=== PATIENT | female | born 1980 | race Two or more races ===

== ENCOUNTER 2016-12-09 20:43 | Emergency (ER) | payer MEDICARE, MEDICAID ==
[~2016-12-09] VITALS: Ht 160 cm; Wt 49.9 kg
[~2016-12-09 20:43] MED LIST: BENA40TA2 PO; CHOL200026 PO; CLON0.2T PO; CLONIDINE PATCH TD; LEVO150T8 PO; METO-306 PO; NIFE60TA69 PO
--- NOTE | 2016-12-09 20:43 | NUR ---
to bed 2 bib paramedics c/o L sided chest pressure x2 hrs guard captain. pt was given nitro spray x3 and aspirin 162mg po. pt describes pain as pressure. pt aaox4 no acute distress noted, resp even and unlabored. place pt on cardiac monitoring, continuous pox. skin warm nondiaphoretic. pending er md winston.
--- NOTE | 2016-12-09 20:44 | NUR ---
rere aquino at bedside to tish grimes.
--- NOTE | 2016-12-09 20:55 | NUR ---
dietary worker at bedside for blood draw.
[2016-12-09 20:59] LABS: BASOPHILS % (AUTO) 0.2 % (0.0-2.0); EOSINOPHILS # (AUTO) 0.2 /CMM (0.0-0.7); EOSINOPHILS % (AUTO) 1.7 % (0.0-6.0); HEMATOCRIT 31 % (33-45); HEMOGLOBIN 10.7 g/dL (11.5-14.8); LYMPHOCYTES # (AUTO) 1.2 /CMM (0.8-4.8); LYMPHOCYTES % (AUTO) 13.9 % (20.0-44.0); MEAN CORPUSCULAR HEMOGLOBIN 32 PG (26.0-33.0); MEAN CORPUSCULAR HGB CONC 35 g/dl (31.0-36.0); MEAN CORPUSCULAR VOLUME 91 fL (82-100); MONOCYTES # (AUTO) 0.6 /CMM (0.1-1.30); MONOCYTES % (AUTO) 6.3 % (2.0-12.0); NEUTROPHILS # (AUTO) 6.8 /CMM (1.8-8.9); NEUTROPHILS % (AUTO) 77.9 % (43.0-81.0); PLATELET COUNT (AUTO) 435 /CMM (150-450); RDW COEFFICIENT OF VARIATION 13.2 (11.5-15.0); WHITE BLOOD COUNT (AUTO) 8.8 K/uL (4.3-11.0)
[2016-12-09 21:08] LABS: CALCIUM, SERUM 9.7 mg/dL (8.5-10.1); CARBON DIOXIDE 35 mmol/L (21-32); CHLORIDE 99 mmol/L (98-107); CREATININE 3.8 mg/dL (0.6-1.3); GFR 14 mL/min (>60); GLUCOSE 98 mg/dL (74-106); SODIUM SERUM 138 mmol/L (136-145); UREA NITROGEN, BLOOD 17 mg/dL (7-18)
[2016-12-09 21:12] LABS: INR 1.15 (0.87-1.13); PROTHROMBIN TIME 12.1 SECS (9.5-12.7)
[2016-12-09 21:18] LABS: TROPONIN I < 0.017 ng/mL (0.00-0.056)
--- NOTE | 2016-12-09 22:06 | NUR ---
Patient does not wish to proceed with medical care recommended by Dr. Coleman). Patient given information related to possible complications, up to and including , which could occur as a result of leaving the hospital at this time. Patient verbalizes understanding of risks involved due to leaving against medical advice. Patient has signed AMA form. pt aaox4 no acute distress noted, resp even and unlabored. pt at bedside to take pt home.
--- NOTE | 2016-12-09 22:06 | NUR ---
IV removed. Catheter intact and site benign. Pressure and 4x4 applied to site. No bleeding noted.
[2016-12-09 22:08] VITALS: BP 153/93
== END 2016-12-09 22:09 | disposition left against medical advice (07) ==
LOC: ER 20:48
DX: R07.2 Precordial pain (principal); I10 Essential (primary) hypertension; D64.9 Anemia, unspecified; Z99.2 Dependence on renal dialysis; Z85.850 Personal history of malignant neoplasm of thyroid; F41.9 Anxiety disorder, unspecified; F17.210 Nicotine dependence, cigarettes, uncomplicated
CPT/HCPCS: 36415; 71010; 80048; 84484; 85025; 85730; 93005; 99285; A4606; Z7610

== ENCOUNTER 2017-06-12 03:46 | Inpatient (IN) | payer MEDICARE, MEDICAID ==
[2017-06-12] VITALS (31 sets, daily range): BP systolic 132–203; BP diastolic 77–133
[~2017-06-12] VITALS: Ht 152.4 cm; Wt 49.9 kg
--- NOTE | 2017-06-12 03:57 | NUR ---
Pt BIB [facility] for SOB. Pt c/o SOB and chest tightness since around 2300 last night. Pt denies CP, dizziness, n/v, no other complaints, minor distress noted.
--- NOTE | 2017-06-12 04:23 | NUR ---
Admin ntg. IV 20g right hand. Pt on monitor. Pt placed on bi-level by RT. EKG, given to
[2017-06-12 04:26] LABS: BASOPHILS % (AUTO) 0.3 % (0.0-2.0); EOSINOPHILS # (AUTO) 0.2 /CMM (0.0-0.7); EOSINOPHILS % (AUTO) 1.6 % (0.0-6.0); HEMATOCRIT 32 % (33-45); HEMOGLOBIN 10.5 g/dL (11.5-14.8); LYMPHOCYTES # (AUTO) 0.9 /CMM (0.8-4.8); LYMPHOCYTES % (AUTO) 8.8 % (20.0-44.0); MEAN CORPUSCULAR HEMOGLOBIN 29 PG (26.0-33.0); MEAN CORPUSCULAR HGB CONC 33 g/dl (31.0-36.0); MEAN CORPUSCULAR VOLUME 90 fL (82-100); MONOCYTES # (AUTO) 0.4 /CMM (0.1-1.30); MONOCYTES % (AUTO) 3.8 % (2.0-12.0); NEUTROPHILS # (AUTO) 8.9 /CMM (1.8-8.9); NEUTROPHILS % (AUTO) 85.5 % (43.0-81.0); PLATELET COUNT (AUTO) 279 /CMM (150-450); RDW COEFFICIENT OF VARIATION 16.9 (11.5-15.0); RED BLOOD CELL COUNT(AUTO) 3.59 MIL/uL (4.0-5.2); WHITE BLOOD COUNT (AUTO) 10.4 K/uL (4.3-11.0)
[2017-06-12 04:36] LABS: CALCIUM, SERUM 9.4 mg/dL (8.5-10.1); CREATININE 6.8 mg/dL (0.6-1.3)
[2017-06-12 04:39] LABS: INR 1.15 (0.87-1.13)
[2017-06-12 04:44] LABS: TROPONIN I 0.018 ng/mL (0.00-0.056)
[2017-06-12 04:49] LABS: ALBUMIN 3.4 g/dL (3.4-5.0); BILIRUBIN,DIRECT 0.1 mg/dL (0.0-0.2); BILIRUBIN,TOTAL 0.4 mg/dL (0.2-1.0); TOTAL PROTEIN, SERUM 7.5 g/dL (6.4-8.2)
--- NOTE | 2017-06-12 05:10 | NUR ---
Called report to AKIL Merino, ICU
--- NOTE | 2017-06-12 05:11 | NUR ---
ALBUTEROL 20MG 4ML GIVEN VIA SMALL VOLUME NEBULIZER IN 1 TX PER MD ORDER, ADMINISTER AAS QUICKLY POSSIBLE DUE TO INCREASED K Addendum: 06/12/17 at 0513 by NIMA VEGA RT Amended: Links added.
--- NOTE | 2017-06-12 05:15 | NUR ---
RN NOTES RECEIVED REPORT FROM SCRUB NURSE NELSON
--- NOTE | 2017-06-12 05:16 | NUR ---
Pt not able to give urine sample yet
--- NOTE | 2017-06-12 05:45 | NUR ---
RN INITIAL NOTES PT ARRIVED ON THE UNIT, A/O X4, ON 4L NASAL CANNULA, NO S/S OF RESP DISTRESS, SATURATING WELL. PT DENIES ANY PAIN. SKIN IS INTACT. VITALS ARE WNL. RIGHT HAND 20G FLUSHED AND PATENT, NO S/S OF INFILTRATION/INFECTION, DRESSING CDI. LEFT UPPER ARM AV FISTULA NOTED WITH BRUIT AND THRILL. PATIENT WILL BE BACK ON BIPAP, SETTINGS RATE 12, 30% FIO2, 15/5. BED LOW AND LOCKED, SIDERAILS UP, CALL LIGHT WITHIN REACH. WILL MONITOR
--- NOTE | 2017-06-12 05:48 | NUR ---
pt transfered to ICU via gurney with EMT and RN
--- NOTE | 2017-06-12 06:30 | NUR ---
RN NOTES PT REMAINS STABLE OF THE MOMENT. WILL ENDORSE BONIFACIO TO AM RN
--- NOTE | 2017-06-12 07:30 | NUR ---
ICU/RN: Pt received, awake and alert on BiPAP, denies pain and discomfort, no distress noted. ST on monitor. IV HL patent, flushed. Oriented to POC. Verbalized understanding, will cont to monitor pt.
--- NOTE | 2017-06-12 09:45 | NUR ---
ICU/RN: Dr Elmore at the bedside; updated on pt status. Informed of K 6.0. Orders for HD today. Pt in agreement with POC.
--- NOTE | 2017-06-12 09:50 | NUR ---
ICU/RN: Kj Davis, DNP at bedside. POC dw pt. Aware of abn labs. Pt anxious to go home. Per ASSET ADMINISTRATOR, HD today, ambulate post-HD as tolerated, possible DC if pt tolerates.
--- NOTE | 2017-06-12 10:00 | NUR ---
ICU/RN: BP meds held; pt scheduled for HD this am.
--- NOTE | 2017-06-12 11:00 | NUR ---
ICU/RN: HD RN at bedside.
--- NOTE | 2017-06-12 13:00 | NUR ---
manager multicultural pt is being dialyzed sbp 193/113 paged jaskaran simpson awaiting for orders. pt is aox4 denies of any pain or discomfort at this time.
--- NOTE | 2017-06-12 13:13 | NUR ---
1700 bp med given for elevated bp, Nahomy BARNARD report given to continue care.
--- NOTE | 2017-06-12 13:34 | NUR ---
ICU/RN: Received report from AKIL Hamlin. Kj Davis aware of constantly elevated BP >180's during 180's, per PRIVATE BRANCH EXCHANGE OPERATOR administer home meds. Pt states "this always happens during HD. I just take my home meds to help control it. It goes down about an hour after I take it." Addendum: 06/12/17 at 1434 by ROB SEARS RN SBP >180's during HD
--- NOTE | 2017-06-12 14:15 | NUR ---
ICU/RN: Pt SOB with exertion, attempted to get out of bed, wheezing noted on auscultation. Placed back on BiPAP. Educated and updated.
--- NOTE | 2017-06-12 15:30 | NUR ---
ICU/RN: Pt finally agrees to take Hydralazine doses post-HD. Pt has been refusing to take scheduled dose for past 2 hours for blood pressure management. Will monitor BP closely. Now off BiPAP. Breathing even and unlabored.
--- NOTE | 2017-06-12 16:54 | NUR ---
ICU/RN: Spoke with pt at length regarding taking daily Metoprolol dose, pt refuses, states "I want to wait a little bit more before taking another blood pressure pill. When I take them too close to each other my blood pressure suddenly drops after awhile." Pt sitting at edge of bed, no s/s distress noted.
--- NOTE | 2017-06-12 17:30 | NUR ---
ICU/RN: Kj Davis, OLINDA notified of pt non-compliance. New orders for BP management noted and carried out. Educated pt, says "I'll just take the Clonidine for now. The other meds later." methods and procedures analyst updated.
--- NOTE | 2017-06-12 18:45 | NUR ---
ICU/RN: Clonidine dose ineffective. Administered Labetalol prn as ordered; pt requested Zofran for nausea. Will reassess effectiveness accordingly.
--- NOTE | 2017-06-12 19:21 | NUR ---
ICU/RN: Pt sitting in bed, SBP trending down post-labetalol administration, for VS refer to flowsheet. Care endorsed to PM RN for BONIFACIO.
--- NOTE | 2017-06-12 19:35 | NUR ---
PLC CONTROLS ENGINEER DF RECEIVED REPORT FROM AKIL RIVAS. WE DISCUSSED WITH THE PT ELEVATED BP OF 188/98, 186/85, PT TOOK LABETALOL(1750) AND CLONIDINE (1830). PT EARLIER AND NOW REFUSES HYDRALAZINE AND METOPROLOL THAT ARE PAST DUE. PT RELAYED FEAR OF HAVING TOO LOW BP IF SHE TAKES TOO MANY ANTIHYPERTENSIVE,S. PT ADVISED OF RISKS OF HIGH BP AND BENEFITS OF MEDICATION. PT REFUSES INTERVENTION NOW WILL MONITOR PT,S BP.
--- NOTE | 2017-06-12 23:22 | NUR ---
ECONOMIST RESEARCH ASSISTANT DF PT BP REMAINS ELEVATED. PT AGREES TO TAKE MEDICATION DOSE SHE SKIPPED EARLIER. PT HAS BEEN HYPERTENSIVE(SEE PREVIOUS NOTES REGARDING REFUSING MEDS) PT AGREES TO FOLLOWING OF DR MCCRACKEN PT REFUSED MEDS EARLIER/SKIPPED DOSE PROLONGED BP ELEVATED GIVE PROCARDIA 30MG XL X1 NOW RESUME SCHEDULED IN AM GIVE TOPOL [id number] X1
[2017-06-13] VITALS (29 sets, daily range): BP systolic 149–181; BP diastolic 83–111
--- NOTE | 2017-06-13 01:44 | NUR ---
CHURN DRILLER DF PT BP OF 167/97 181/104 PER PREVIOUS NOTES, PT ADMIN PROCARDIA/METOPROLOL @2330.PT ASYMPTOMATIC PT REFUSES FURTHER MEDICATION INTERVENTION IN FEAR OF DECREASING BP TOO LOW. PT AWARE OF RISKS OF HIGH BP. Addendum: 06/13/17 at 0152 by SHRUTHI SOLIS RN PT ON N/C 4-5LPM OCCASIONALLY DESATURATION WHILE SLEEPING TO 88-90%. PT WITH MILD SOB MORE SEVERE ON EXERTION. I OFFERED BIPAP SUPPORT TO PT WHO REFUSES CLAIMS SHE IS COMFORTABLE ON N/C. INFORMED PT WE WILL MONITOR HER STATUS AND INTERVENE WITH BIPAP IF NEEDED.
[2017-06-13 05:06] LABS: BASOPHILS % (AUTO) 0.1 % (0.0-2.0); EOSINOPHILS # (AUTO) 0.1 /CMM (0.0-0.7); EOSINOPHILS % (AUTO) 0.9 % (0.0-6.0); HEMATOCRIT 34 % (33-45); HEMOGLOBIN 11.1 g/dL (11.5-14.8); LYMPHOCYTES # (AUTO) 0.7 /CMM (0.8-4.8); MEAN CORPUSCULAR HEMOGLOBIN 30 PG (26.0-33.0); MEAN CORPUSCULAR HGB CONC 33 g/dl (31.0-36.0); MEAN CORPUSCULAR VOLUME 92 fL (82-100); MONOCYTES # (AUTO) 0.5 /CMM (0.1-1.30); MONOCYTES % (AUTO) 4.1 % (2.0-12.0); NEUTROPHILS # (AUTO) 10.8 /CMM (1.8-8.9); NEUTROPHILS % (AUTO) 88.9 % (43.0-81.0); PLATELET COUNT (AUTO) 195 /CMM (150-450); RDW COEFFICIENT OF VARIATION 16.9 (11.5-15.0); RED BLOOD CELL COUNT(AUTO) 3.69 MIL/uL (4.0-5.2); WHITE BLOOD COUNT (AUTO) 12.2 K/uL (4.3-11.0)
[2017-06-13 05:26] LABS: CALCIUM, SERUM 9.4 mg/dL (8.5-10.1); CREATININE 5.6 mg/dL (0.6-1.3); MAGNESIUM 2.2 mg/dL (1.8-2.4); PHOSPHORUS 5.4 mg/dL (2.5-4.9); POTASSIUM 5.2 mmol/L (3.5-5.1)
[2017-06-13 05:29] LABS: THYROID STIMULATING HORMONE 0.908 uIU/mL (0.358-3.74)
--- NOTE | 2017-06-13 07:30 | NUR ---
DEPUTY MANAGER RECEIVED PATIENT AWAKE SITING ON BED BLOOD PRESSURE IS HIGH, NO HEADACHE NO DIZZINESS PER PATIENT SHE LOOKS WEAK BUT SHE SAID SHE CAN WALK ON HER OWN HAS A LEFT AV SHUNT, THRILLS ARE FELT WHEN TOUCHED NO OTHER COMPLAINTS AT THIS TIME
--- NOTE | 2017-06-13 08:48 | NUR ---
HYDROMETEOROLOGICAL TECHNICIAN PATIENT PREFERS TO TAKE MEDICATION THE WAY SHE TAKES IT AT HOME CATAPRE 0.2 MG PO GIVEN PER PATIENT'S REQUEST
--- NOTE | 2017-06-13 10:16 | NUR ---
CYTOTECHNOLOGIST PATIENT REFUSED TAKING OTHER BLOOD PRESSURE MEDICATION, SHE SAID SHE WILL WAIT IF WILL GET DIALYSIS TODAY OR NOT SHE MEDICATING IN ACCORDANCE TO HOW SHE/S TAKING HER MEDICATIONS AT HOME
--- NOTE | 2017-06-13 17:24 | NUR ---
PARK MAINTENANCE TECHNICIAN PATIENT MAY TRANSFER TO TELE ONCE DIALYSIS IS DONE AND BLOOD PRESSURE BECOMES STABLE SHE DOES NOT HAVE ANY HEADACHE OR DIZZINESS AT THIS TIME MONITORED BLOOD PRESSURE CLOSELY
--- NOTE | 2017-06-13 20:00 | NUR ---
LOCKMAKER NOTES RECEIVED PT SITTING IN CHAIR, A/O X4. FAMILY AT BEDSIDE. TELE READS SR AT 93 BPM. ON O2 VIA NC AT 4 LPM, DOROTHY WELL. CARLOS AV SHUNT NOTED WITH DRESSING INTACT. RIGHT HAND 20G IV PRESENT, SALINE LOCKED. PT DENIES PAIN, DIZZINESS OR SOB. ABLE TO AMBULATE INDEPENDENTLY WITH BRP. CALL LIGHT WITHIN REACH. ALL NEEDS MET. PT WISHES TO TAKE HER THYROXINE MED NOW SINCE SHE DID NOT TAKE THE AM DOSE DUE TO HD. Addendum: 06/14/17 at 0118 by VERENICE MCNEIL RN SPELL CORRECTION: LEVOTHYROXINE
--- NOTE | 2017-06-13 20:40 | NUR ---
USABILITY ENGINEER NOTES CONTACTED PHARMACY TO CLARIFY IF LEVOTHYROXINE DOSE CAN BE GIVEN NOW SINCE THE AM DOSE WAS NOT ADMINISTERED. PER PHARMACY OK TO GIVE.
--- NOTE | 2017-06-13 22:00 | NUR ---
TAVERN KEEPER NOTES PT WISHES TO TAKE METOPROLOL MED AT NIGHT INSTEAD OF MORNING. CONTACTED VICKY PRAKASH AND MADE AWARE. PER VICKY PRAKASH, OK TO CHANGE MED ADMINISTRATION TIME TO 2230.
[2017-06-14] VITALS (15 sets, daily range): BP systolic 138–170; BP diastolic 84–108
--- NOTE | 2017-06-14 00:30 | NUR ---
PROPERTY ADMINISTRATOR NOTES PT REFUSES TO TAKE HYDRALAZINE DOSE AT 0000, STATES HER BLOOD PRESSURE WILL DROP TOO LOW. EDUCATION PROVIDED ABOUT THE RISKS OF HIGH BLOOD PRESSURE. PT STILL REFUSES. CURRENT SBP 166.
--- NOTE | 2017-06-14 01:23 | NUR ---
SUMMER COUNSELOR NOTES SPOKE TO PT REGARD SBP OF 166 AND POSSIBLY AGREEING TO A PRN CLONIDINE DOSE. PT AGREED TO TAKE MED. CLONIDINE 0.2 GIVEN.
[2017-06-14 04:38] LABS: BASOPHILS % (AUTO) 0.2 % (0.0-2.0); EOSINOPHILS # (AUTO) 0.1 /CMM (0.0-0.7); EOSINOPHILS % (AUTO) 0.7 % (0.0-6.0); HEMATOCRIT 34 % (33-45); LYMPHOCYTES % (AUTO) 9.2 % (20.0-44.0); MEAN CORPUSCULAR HEMOGLOBIN 29 PG (26.0-33.0); MEAN CORPUSCULAR HGB CONC 32 g/dl (31.0-36.0); MEAN CORPUSCULAR VOLUME 90 fL (82-100); MONOCYTES # (AUTO) 0.7 /CMM (0.1-1.30); NEUTROPHILS # (AUTO) 9.4 /CMM (1.8-8.9); NEUTROPHILS % (AUTO) 83.9 % (43.0-81.0); PLATELET COUNT (AUTO) 225 /CMM (150-450); RDW COEFFICIENT OF VARIATION 16.4 (11.5-15.0); RED BLOOD CELL COUNT(AUTO) 3.78 MIL/uL (4.0-5.2); WHITE BLOOD COUNT (AUTO) 11.2 K/uL (4.3-11.0)
[2017-06-14 04:58] LABS: CALCIUM, SERUM 9.6 mg/dL (8.5-10.1); CREATININE 5.9 mg/dL (0.6-1.3); MAGNESIUM 2.3 mg/dL (1.8-2.4); PHOSPHORUS 4.7 mg/dL (2.5-4.9); POTASSIUM 6.1 mmol/L (3.5-5.1)
--- NOTE | 2017-06-14 05:36 | NUR ---
INDUSTRIAL MAINTENANCE ELECTRICIAN NOTES PT HAS ORDERS TO DOWNGRADE TO TELE IN ROOM 321-1. REPORT GIVEN TO GINGER BARNARD.
--- NOTE | 2017-06-14 08:28 | NUR ---
RN NOTES/ RECEIVED PATIENT IN THE BED A/O X3/4, BARBADIAN SPEAKER, GATING HEMODIALYSIS, NO ACUTE, NO RESPIRATORY DISTRESS, PATIENT DENIED PAIN AT THIS TIME, CALL LIGHT WITHIN THE PATIENT SAFETY PRECAUTION MAINTAINED ALL THE TIME.
--- NOTE | 2017-06-14 09:00 | NUR ---
RT NOTE PT REMOVED 02 BY HERSELF AND WAS FOUND ON ROOM AIR. PT APPEARED DUSKY AND TACHYPNEIC. SHE STATED THAT SHE FEELS "OK" DESPITE VITAL/CLINICAL SIGNS. MANUAL PULSE OX SHOWED AN SP02 OF 78%. PT WAS THEN PLACED ON 02 4LPM NASAL CANNULA WITH AN SP02 OF 96% POST 02 THERAPY. PT WAS GIVEN EDUCATION ON IMPORTANCE OF KEEPING THE 02 ON. RN AWARE. WILL CONTINUE TO MONITOR PT T/O SHIFT.
--- NOTE | 2017-06-14 10:00 | NUR ---
RN NOTES PATIENT IN THE ROOM, AFTER HEMODIALYSIS OUTPUT IS 1200, PATIENT MED COMPLIANT, V/S STAB, NO ACUTE DISTRESS AT THIS TIME, PATIENT D/C TELLE TO MED/SURGE , CALL LIGHT WITH IN THE PATIENT, SAFETY PRECAUTION MONITORING ALL THE TIME.
--- NOTE | 2017-06-14 11:35 | NUR ---
RN NOTES RT FOUND PATIENT DESATURATED NON ROOM AIR 85%, O2 PROVIDED ON 5L, PATIENT A/O X3, NO RESPIRATORY DISTRESS, PATIENT SITTING EDGE OF THE BED, EDUCATED PATIENT USE OF O2 , AND DO NOT REMOVE, PATIENT NOTED VERBAL UNDERSTANDING. CALL WITH IN THE REACH, CONTINUED MONITORING.
[2017-06-14 11:54] LABS: ABG BASE EXCESS 6.7 mmol/L; ABG OXYGEN SATURATION 83.2 % (92.0-98.5); ABG PCO2 36.9 mmHg (35.0-45.0); ABG PH 7.524 (7.350-7.450); ABG PO2 47.8 mmHg (75.0-100.0); AaDO2 57.7 mmHg; COHb 0.6 % (0.5-1.5); MetHb 0.5 % (0.0-1.5); O2Hb 82.3 % (94.0-97.0); SITE, ABG Right Radial; VENT MODE, BG room air
--- NOTE | 2017-06-14 14:00 | NUR ---
RN NOTES PATIENT IN THE ROOM, NO RESPIRATORY DISTRESS, PATIENTS NEXT TO THE BED, AND WANTED TO BE D/C HOME AMA PER PATIENT REQUEST. DR JAIN, AND CASE MANAGEMENT AWARE . PER YAN PATIENT WILL NEED O2 VIA NC CONTINUOUSLY. KEEP O2 LEVEL 93%AND GREATER. PATIENT NOTED WITH O2 SATURATION WITH 85% TO 91% ROOM AIR. PER MD PATIENT NEED O2 AT HOME. CASE MANAGEMENT ARRANGE FOR O2 USE AT HOME. PATIENT EDUCATED REGARDING OF NEED FOR O2 CONTINUOUSLY AT HOME. PATIENT VERBALIZED UNDERSTANDING, PT WITH NEED FOR REINFORCEMENT CONTINUOUSLY.
--- NOTE | 2017-06-14 16:30 | NUR ---
LANDSCAPE ENGINEER NOTES PATIENT D/C HOME AT THIS TIME AMA. PROVIDED PATIENT OXYGEN TANK. EDUCATED PATIENT US OF O2, IV LINE, AND ID BAND REMOVED, PATIENT SIGN PAPERWORK. PATIENT VERBALIZED UNDERSTANDING. PROVIED TEACHING CALL 911 IN EMERGENCY CASES, AND FOLLOW UP WITH PRIMARY MD. PATIENT BELONGING WITH THE PATIENT, ESCORTED PATIENT TO THE LOBBY FOR SAFETY. PATIENT LEFT UNIT WITH STABLE CONDITION. PATIENT CAP AND STUD MACHINE OPERATOR BY PHONE #[phone].
== END 2017-06-14 16:30 | disposition left against medical advice (07) | DRG 291 ==
LOC: ER 03:49 → ICU 04:58 → MED 06-14 05:57 → TELE 06-14 06:07 → MED 06-14 08:39
PROVIDERS: ADMIT Nurse Practitioner Acute Care; ATTEND Nurse Practitioner Acute Care
PROC: 5A1D70Z Performance of Urinary Filtration, Intermittent, Less than 6 Hours Per Day (ICD-10-PCS; principal; 2017-06-12)
PROC: 5A09357 Assistance with Respiratory Ventilation, Less than 24 Consecutive Hours, Continuous Positive Airway Pressure (ICD-10-PCS; 2017-06-12)
DX: I13.2 Hypertensive heart and chronic kidney disease with heart failure and with stage 5 chronic kidney disease, or end stage renal disease (principal); I50.33 Acute on chronic diastolic (congestive) heart failure; J96.01 Acute respiratory failure with hypoxia; E87.5 Hyperkalemia; I31.3 Pericardial effusion (noninflammatory); J90 Pleural effusion, not elsewhere classified; E83.9 Disorder of mineral metabolism, unspecified; N18.6 End stage renal disease; J98.11 Atelectasis; E78.5 Hyperlipidemia, unspecified; Z99.2 Dependence on renal dialysis; K21.9 Gastro-esophageal reflux disease without esophagitis; D63.8 Anemia in other chronic diseases classified elsewhere; E89.0 Postprocedural hypothyroidism; I16.0 Hypertensive urgency; Z85.850 Personal history of malignant neoplasm of thyroid; F41.9 Anxiety disorder, unspecified
CPT/HCPCS: 36415; 36600; 71010-TC; 80048-TC; 80061-TC; 80076-TC; 82803-TC; 83735-TC; 83880; 84100-TC; 84443-TC; 84484-TC; 84703-TC; 85025-TC; 85730-TC; 87081-TC; 90935-TC; 93307-TC; 94799-TC; A4606; A6402; A6403; J1815; J1940; J2405; J3490; Z7610